=== PATIENT | male | born 1975 | race Caucasian/White ===

== ENCOUNTER 2023-03-09 11:02 | Emergency (ER) | payer SELFPAY ==
[2023-03-09 11:02] VITALS: BP 126/82; PULSE 80; RESP 16; TEMP 36.4; O2SAT 100; BMI 25.1
--- NOTE | 2023-03-09 11:22 | ED_ITS ---
HPI - Eye Problem General: Chief complaint: Eye Problems Stated complaint: object in eye Time Seen by Provider: 03/09/23 11:05 Source: patient Mode of arrival: ambulatory Limitations: no limitations History of Present Illness: 47-year-old male states that he had been working with some copper and felt like it got a piece of the foreign body in his right eye last night. He states that he has had worsening pain along with some discharge erythema to that right eye. States the pain is sharp in nature rates it a 8 out of 10 denies any worsening improving factors. Associated symptoms: Denies fever(s), headache(s), nausea, neck pain or vomiting Review of Systems Const: Denies: fever(s), chills, body aches or change in appetite Eyes: Reports: eye discomfort and eye redness; Denies: blurry vision ENMT: Denies: throat pain or dental pain Card: Denies: chest pain Resp: Denies: dyspnea GI: Denies: abdominal pain, nausea, vomiting or diarrhea : Denies: dysuria Musc: Denies: neck pain or back pain Skin/Breast: Denies: rash Neuro: Denies: headache(s) Physical Exam Const: COMMON NORMALS: no acute distress, patient oriented x3 and healthy appearing HENMT: COMMON NORMALS: normocephalic and atraumatic HEAD & SCALP: normocephalic and atraumatic Eye: COMMON NORMALS: Equal, round and reactive pupils present and EOMs intact bilaterally PUPIL: Yes Equal, round and reactive pupils present OTHER: Corneal abrasion noted to right cornea no foreign body noted Neck/C-Spine: COMMON NORMALS: full ROM and supple Chest: COMMONS NORMALS: normal inspection of the chest Resp: COMMON NORMALS: normal respiratory effort Cardio: COMMON NORMALS: regular rate, regular rhythm and No murmurs present (Cardio) RATE: regular rate RHYTHM: regular rhythm Extremity: COMMON NORMALS: normal to inspection and full ROM Neuro: COMMON NORMALS: patient oriented x3, moves all extremities and no focal motor deficits Psych: COMMON NORMALS: mental status grossly normal, Normal thought process present and cooperative THOUGHT PROCESS: Normal thought process present Skin: COMMON NORMALS: no rashes or lesions noted and no wounds GENERAL SKIN EXAM: no rashes or lesions noted Course Vital Signs: Vital signs: Vital Signs Temperature 97.6 F 03/09/23 11:02 Pulse Rate 80 01/11/24 11:02 Respiratory Rate 16 03/09/23 11:02 Blood Pressure 126/82 03/09/23 11:02 Pulse Oximetry 100 03/09/23 11:02 Oxygen Delivery Me thod Room Air 03/09/23 11:02 MDM - Eye Problem Medical Decision Making Patient presents here with corneal abrasion to right eye no foreign body noted he is well-appearing here we will place him on antibiotic ointment he is to follow-up with subject scientific research return if worsening. Medical Records I reviewed the patient's medical records. Lab Data I reviewed the patient's lab results. No radiology studies performed this visit Discharge Plan Discharge Patient Disposition: Home Clinical Impression: Corneal abrasion Qualifiers: Encounter type: initial encounter Laterality: left Qualified Code(s): S05.02XA - Injury of conjunctiva and corneal abrasion without foreign body, left eye, initial encounter Condition: Stable Prescriptions: New erythromycin 5 mg/gram (0.5 %) ointment 1 applic ophthalmic (eye) Q6H 5 Days Qty: 3.5 0RF Discharge Orders: Discharge ED (Routine); Ordered 03/09/23 Ordered By: Meliza Lauren Referrals: Moises Hugo [Physician] - 1-3 days Discharge Diet: Advance as tolerated Discharge Activity: Resume usual activity Patient Instructions: Corneal Abrasion (ED) Coding Level of Care Code ED Head Pumper for Eze Lopez
[2023-03-09] MEDS: tetracaine 0.5% Op Soln 4 mL Btl 1 DROP EYE-RIGHT (11:37)
[2023-03-09] MEDS: fluorescein 1 mg Strip EYE-RIGHT (11:37)
[2023-03-09 11:43] VITALS: BP 126/82; PULSE 80; RESP 16; TEMP 36.4; O2SAT 100
== END 2023-03-09 11:44 | disposition home or self-care (01) ==
PROVIDERS: Emergency Provider Emergency Medicine
DX: S05.02XA Injury of conjunctiva and corneal abrasion without foreign body, left eye, initial encounter (principal); X58.XXXA Exposure to other specified factors, initial encounter
CPT/HCPCS: 99283